=== PATIENT | female | born 1980 | race Caucasian/White ===

== ENCOUNTER → 2019-03-08 13:26 | Outpatient (CLI) | payer OTHER, SELFPAY ==
[2019-03-08 15:16] LABS: Cancer Antigen 125 203 U/mL (0-35)
[2019-03-13 15:41] LABS: Human HE4 Antigen 34 pmol/L
== END ==
PROVIDERS: PCP Nurse Practitioner; Visit Provider Obstetrics & Gynecology
DX: N83.9 Noninflammatory disorder of ovary, fallopian tube and broad ligament, unspecified (principal)
CPT/HCPCS: 36415; 86304; 86305

== ENCOUNTER → 2019-03-28 06:56 | Outpatient (CLI) | payer OTHER, SELFPAY ==
[2019-03-28 09:08] LABS: Cancer Antigen 125 102 U/mL (0-35)
== END ==
PROVIDERS: PCP Nurse Practitioner; Visit Provider Obstetrics & Gynecology
DX: N83.9 Noninflammatory disorder of ovary, fallopian tube and broad ligament, unspecified (principal)
CPT/HCPCS: 36415; 86304

== ENCOUNTER 2019-03-30 18:18 | Emergency (ER) | payer OTHER, SELFPAY ==
--- NOTE | 2019-03-30 18:24 | ED.ABDPAIN ---
HPI - Abdominal Pain General Chief Complaint: Abdominal Pain Stated Complaint: severe abd and pelvic pain Time Seen by Provider: 03/30/19 18:24 Source: patient Mode of arrival: ambulatory Limitations: no limitations History of Present Illness HPI narrative: 38-year-old female here for evaluation of left adnexal pain. Patient states she has a history of PCOS. She is not currently on control. Has been 2 times the past. States that this morning she woke up with slight left sided adnexal pain. As the day went on she started to have some vaginal bleeding. She had a sudden onset of a large amount of vaginal bleeding where she blood through a tampon. Since then has had worsening left adnexal pain. Related Data Previous Rx's Medication Instructions Recorded acyclovir 400 mg PO TID #15 tab 06/15/17 oxycodone-acetaminophen 5 mg-325 1 tab PO Q4-6H PRN #14 tab 03/08/19 mg tablet norethindrone 1 mg-ethinyl 1 tab PO DAILY #30 tab 03/28/19 estradiol 10 mcg (24)-iron 10 mcg(2) tablet hydrocodone-acetaminophen [[place]] 1 tab PO Q4-6H PRN #7 tab 03/30/19 Allergies Allergy/AdvReac Type Severity Reaction Status Date / Time No Known Drug Allergies Allergy Verified 03/30/19 18:37 Review of Systems Constitutional Denies fever(s) and Denies headache(s) ENT Ears, Nose, Mouth, and Throat: Denies headache(s) Cardiovascular Denies chest pain and Denies dyspnea Respiratory Denies dyspnea Gastrointestinal Gastrointestinal: Reports abdominal pain, Denies change in bowel habits, Denies nausea and Denies vomiting Genitourinary Denies dysuria Comments: Vaginal bleeding Musculoskeletal Denies myalgias and Denies arthralgias Integumentary/Breasts Denies rash Neurologic Denies headache(s) Hematologic/Lymphatic Denies easy bleeding and Denies easy bruising Allergic/Immunologic Denies urticaria [facility] Medical History PCOS (polycystic ovarian syndrome) (Acute) Surgical History (Updated 02/21/18 @ 05:41 by Conversion Provider) History of third molar tooth extraction Status post exploratory laparotomy Social History Smoking Status: Never smoker Social History Smoking Status: Never smoker Exam Initial Vital Signs Initial Vital Signs: Vital Signs Temperature 98.4 F 03/30/19 18:25 Pulse Rate 95 H 03/30/19 18:25 Respiratory Rate 18 03/30/19 18:25 Blood Pressure 111/73 03/30/19 18:25 Pulse Oximetry 99 03/30/19 18:25 Const General: cooperative, No comfortable (Uncomfortable), well developed, well groomed and No acute distress Orientation: alert, awake and oriented x3 HENMT Head: normal to inspection and normocephalic Resp Effort & Inspection: normal respiratory effort Auscultation: clear to auscultation bilaterally Cardio Rate: regular rate Rhythm: regular rhythm Pulses: radial pulses present GI Inspection: non-distended Palpation: soft, No firm, No rigid and tender (Left adnexal) Skin Lesions: no lesions Rashes: no rashes Neuro General: alert, awake and oriented x3 Extrem General: normal to inspection and capillary refill normal Psych Appearance: grossly normal and well kempt Course Orders Ordered: ED Orders 03/30/19 18:30 Ictotest Urine Stat Urinalysis and Microscopic Stat 03/30/19 18:32 US OB <= 14 weeks fetus Stat 03/30/19 18:50 ABO RH Type Stat Complete Blood Count AUTO DIFF Stat Comprehensive Metabolic Panel Stat HCG Quantitative Stat Lipase Stat Test Serum,Qual Stat Discontinued Medications Hydrocodone Bitart/Acetaminophen (Vicodin Prepack) 1 bottle MISC SEEINSTR ONE Stop: 03/30/19 21:46 Last Admin: 03/30/19 22:12 Dose: 1 bottle Hydromorphone HCl (Dilaudid) 0.5 mg IV NOW ONE Stop: 03/30/19 19:29 Last Admin: 03/30/19 19:34 Dose: 0.5 mg Hydromorphone HCl (Dilaudid) 0.5 mg IV NOW ONE Stop: 03/30/19 21:13 Last Admin: 03/30/19 21:18 Dose: 0.5 mg Morphine Sulfate (Morphine) 4 mg IV NOW ONE Stop: 03/30/19 18:34 Last Admin: 03/30/19 18:45 Dose: 4 mg Ondansetron HCl (Zofran) 4 mg IV NOW ONE Stop: 03/30/19 18:53 Last Admin: 03/30/19 18:53 Dose: 4 mg Vital Signs - 8 hr 03/30/19 18:25 03/30/19 19:58 03/30/19 20:56 Temperature 98.4 F 98.2 F Pulse Rate 95 H 70 70 Respiratory Rate 18 18 16 Blood Pressure 111/73 Blood Pressure [Right Arm] 94/61 108/82 Pulse Oximetry 99 98 97 03/30/19 22:15 03/30/19 22:19 Temperature Pulse Rate 64 71 Respiratory Rate 16 16 Blood Pressure 110/68 110/68 Blood Pressure [Right Arm] Pulse Oximetry 99 98 MDM - Abdominal Pain Lab Data Attestation: I reviewed the patient's lab results. Result diagrams: 03/30/19 18:50 03/30/19 18:50 Lab Results 03/30/19 03/30/19 03/30/19 Range/Units 18:30 18:50 18:50 WBC 10.4 (4.5-11.0) X10^3/uL RBC 4.21 (4.0-5.2) X10^6/uL Hgb 13.2 (12.0-16.0) g/dL Hct 38.1 (36-46) % MCV 90.3 (80-100) fL MCH 31.3 (26-34) PG MCHC 34.6 (30-36) % RDW 12.4 (11.6-14.8) % Plt Count 262 (150-400) X10^3/uL Neut % (Auto) 69.2 (50-75) % Lymph % (Auto) 20.4 L (25-40) % [place] % (Auto) 8.1 (3-14) % Eos % (Auto) 1.6 L (2-4) % Baso % (Auto) 0.7 (0-2) % Neut # (Auto) 7200 H (8876-9201) /uL Lymph # (Auto) 2100 (1547-3059) /uL [place] # (Auto) 800 (0-900) /uL Eos # (Auto) 200 (0-450) /uL Baso # (Auto) 100 (0-100) /uL Sodium 138 (137-145) mmol/L Potassium 3.3 L (3.4-5.1) mmol/L Chloride 103 (98-107) mmol/L Carbon Dioxide 28 (22-32) mmol/L BUN 14 (7-17) mg/dL Creatinine 0.70 (0.52-1.04) mg/dL Estimated GFR > 60.0 (>60) mL/min BUN/Creatinine Ratio 20.0 (6-22) Glucose 120 H (70-100) mg/dL Calcium 9.2 (8.4-10.2) mg/dL Total Bilirubin 0.7 (0.2-1.3) mg/dL AST 24 (14-36) IU/L ALT 13 (9-52) IU/L Alkaline Phosphatase 64 (38-126) U/L Total Protein 7.1 (6.3-8.2) g/dL Albumin 4.2 (3.5-5.0) g/dL Globulin 2.9 (1.7-4.1) g/dL Albumin/Globulin Ratio 1.4 (1.0-2.8) Lipase 107 (23-300) U/L HCG, Quant mIU/mL Serum , Qual (Negative) Urine Color Yellow Urine Appearance Clear Urine pH 5.0 (4.5-8.0) Ur Specific [place] >=1.030 H (1.000-1.035) Urine Protein 2+ H (Negative) Urine Glucose (UA) Negative (Negative) g/dL Urine Ketones Trace H (NEGATIVE) Urine Occult Blood 3+ H (Negative) Urine Nitrate Negative (Negative) Urine Bilirubin 1+ H (NEGATIVE) Urine Ictotest Positive H (Negative) Urine Urobilinogen 0.2 (0.2) E.U./dL Ur Leukocyte Esterase Negative (NEGATIVE) Urine RBC 30-100/hpf H (0-5/HPF) Urine WBC None seen (0-5/HPF) Ur Squamous Epith Cells 1-5 /hpf (0-5/HPF) Urine Bacteria None seen (None) Urine Mucus 1+ H (Negative) Ur Culture Indicated? Cult not indicated Blood Type 03/30/19 03/30/19 03/30/19 Range/Units 18:50 18:50 18:50 WBC (4.5-11.0) X10^3/uL RBC (4.0-5.2) X10^6/uL Hgb (12.0-16.0) g/dL Hct (36-46) % MCV (80-100) fL MCH (26-34) PG MCHC (30-36) % RDW (11.6-14.8) % Plt Count (150-400) X10^3/uL Neut % (Auto) (50-75) % Lymph % (Auto) (25-40) % [place] % (Auto) (3-14) % Eos % (Auto) (2-4) % Baso % (Auto) (0-2) % Neut # (Auto) (2705-1995) /uL Lymph # (Auto) (3301-4410) /uL [place] # (Auto) (0-900) /uL Eos # (Auto) (0-450) /uL Baso # (Auto) (0-100) /uL Sodium (137-145) mmol/L Potassium (3.4-5.1) mmol/L Chloride (98-107) mmol/L Carbon Dioxide (22-32) mmol/L BUN (7-17) mg/dL Creatinine (0.52-1.04) mg/dL Estimated GFR (>60) mL/min BUN/Creatinine Ratio (6-22) Glucose (70-100) mg/dL Calcium (8.4-10.2) mg/dL Total Bilirubin (0.2-1.3) mg/dL AST (14-36) IU/L ALT (9-52) IU/L Alkaline Phosphatase (38-126) U/L Total Protein (6.3-8.2) g/dL Albumin (3.5-5.0) g/dL Globulin (1.7-4.1) g/dL Albumin/Globulin Ratio (1.0-2.8) Lipase (23-300) U/L HCG, Quant 8248.6 mIU/mL Serum , Qual Positive H (Negative) Urine Color Urine Appearance Urine pH (4.5-8.0) Ur Specific [place] (1.000-1.035) Urine Protein (Negative) Urine Glucose (UA) (Negative) g/dL Urine Ketones (NEGATIVE) Urine Occult Blood (Negative) Urine Nitrate (Negative) Urine Bilirubin (NEGATIVE) Urine Ictotest (Negative) Urine Urobilinogen (0.2) E.U./dL Ur Leukocyte Esterase (NEGATIVE) Urine RBC (0-5/HPF) Urine WBC (0-5/HPF) Ur Squamous Epith Cells (0-5/HPF) Urine Bacteria (None) Urine Mucus (Negative) Ur Culture Indicated? Blood Type B Positive Imaging Data ultrasound: Radiologist's impression: [address] [address] Ultrasound Report Signed Patient: Mirela Stanley [facility]#: [id number] : 1980Acct:[id number] Age/Sex: 38 / FDate of Service: 03/30/19 Loc: ED Accession Number: [id number] Procedure: US OB <= 14 weeks fetus Ordering Provider: Jd Perez D.O. PROCEDURE: US OB <= 14 WEEKS FETUS INDICATIONS: LEFT ADNEXAL PAIN OUTSIDE/PRIOR DATING DATA: Last menstrual period (LMP): No available. LMP-based estimated date of delivery (LOY): Not available. First dating scan (date and location): 03/30/2019. Estimated date of delivery (LOY) from first dating scan: 11/23/2019. TECHNIQUE: Real-time scanning was performed of the fetus and maternal pelvic organs, with image documentation. Endovaginal scanning was also performed to better visualize the fetus and maternal ovaries. COMPARISON: None. FINDINGS: Embryo: There is an intrauterine gestational sac which appears irregular. There is a pole. Based on the crown-rump length, the estimated gestational age is 6 weeks zero day. No cardiac activity is visualized. Measurement variability in dating: +/- 4 weeks by LMP, +/- 7 days by mean sac diameter (use before 6 weeks gestation if crown-rump length not able to be measured), +/- 5 days by crown-rump length (up to 8 weeks 6 days gestation), +/- 7 days by crown-rump length (up to 13 weeks 6 days gestation). Maternal organs: Ovaries are grossly normal. There is a corpus luteal cyst in the right ovary. Limited images through the kidneys demonstrate no hydronephrosis. IMPRESSION: An irregular intrauterine gestational sac is identified with an estimated gestational age is 6 weeks 0 day. A pole is present, but no heart tone. The ultrasound findings are suspicious for first trimester failure (early demise). Please correlate with quantitative beta hCG. Dictated by: Lara Mills M.D. on 03/30/2019 at 21:18 Approved by: Lara Mills M.D. on 03/30/2019 at 21:23 MDM Narrative Medical decision making narrative: The patient did have a positive test. I did inform her of this. She was unaware that she was . She is Rh positive so no indication for RhoGAM. The ultrasound is consistent with a miscarriage. I discussed this with the patient. She is not anemic. No indication for admission to the hospital. We did discuss the expected course of symptoms over the next day or so. 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 She was given return precautions. She expressed understanding and agreement with plan. Discharge Plan Departure Patient Disposition: Home Clinical Impression: Miscarriage Discharge Date/Time: 03/30/19 22:20 Interventions: ED Discharge Assessment Last Done: 03/30/19 22:19 Instructions: Dealing With Miscarriage, DI for Miscarriage Activity Restrictions/Additional Instructions: Expect some discomfort and bleeding over the next couple days. On Tuesday contact your OB provider for a follow-up. You can also take ibuprofen along with the prescription you were given today for any discomfort. Return to the emergency department for any new or worsening symptoms Prescriptions: New hydrocodone-acetaminophen [[place]] 5-325 mg tablet 1 tab PO Q4-6H PRN (Reason: pain) Qty: 7 RF: 0 No Action acyclovir 400 MG tablet 400 mg PO TID Qty: 15 RF: 0 Lo Loestrin Fe 1 mg-10 mcg (24)/10 mcg (2) tablet 1 tab PO DAILY Qty: 30 RF: 3 oxycodone-acetaminophen [Percocet] 5-325 mg tablet 1 tab PO Q4-6H PRN (Reason: pain) Qty: 14 RF: 0 Referrals: Rashmi Morrell ARNP [Primary Care Provider] -
[2019-03-30 18:25] VITALS: BP 111/73; PULSE 95; RESP 18; TEMP 36.9; O2SAT 99; BMI 28.0
--- NOTE | 2019-03-30 18:32 | DI.US.S_ITS ---
PROCEDURE: US OB <= 14 WEEKS FETUS INDICATIONS: LEFT ADNEXAL PAIN OUTSIDE/PRIOR DATING DATA: Last menstrual period (LMP): No available. LMP-based estimated date of delivery (LOY): Not available. First dating scan (date and location): 03/30/2019. Estimated date of delivery (LOY) from first dating scan: 11/23/2019. TECHNIQUE: Real-time scanning was performed of the fetus and maternal pelvic organs, with image documentation. Endovaginal scanning was also performed to better visualize the fetus and maternal ovaries. COMPARISON: None. FINDINGS: Embryo: There is an intrauterine gestational sac which appears irregular. There is a pole. Based on the crown-rump length, the estimated gestational age is 6 weeks zero day. No cardiac activity is visualized. Measurement variability in dating: +/- 4 weeks by LMP, +/- 7 days by mean sac diameter (use before 6 weeks gestation if crown-rump length not able to be measured), +/- 5 days by crown-rump length (up to 8 weeks 6 days gestation), +/- 7 days by crown-rump length (up to 13 weeks 6 days gestation). Maternal organs: Ovaries are grossly normal. There is a corpus luteal cyst in the right ovary. Limited images through the kidneys demonstrate no hydronephrosis. IMPRESSION: An irregular intrauterine gestational sac is identified with an estimated gestational age is 6 weeks 0 day. A pole is present, but no heart tone. The ultrasound findings are suspicious for first trimester failure (early demise). Please correlate with quantitative beta hCG. Dictated by: Lara Mills M.D. on 03/30/2019 at 21:18 Approved by: Lara Mills M.D. on 03/30/2019 at 21:23
[2019-03-30 18:38] LABS: Bacteria Urine None Seen; WBC Urine None Seen (0-5/HPF)
[2019-03-30 18:39] LABS: Appearance Urine UA CLEAR; Bilirubin Urine UA 1+ (NEGATIVE); Color Urine UA YELLOW; Glucose Urine UA NEGATIVE (Negative); Ketones Urine UA TRACE (NEGATIVE); Leukocyte Esterase Urine UA NEGATIVE (NEGATIVE); Nitrite Urine UA NEGATIVE (Negative); Occult Blood Urine UA 3+ (Negative); Protein Urine UA 2+ (Negative); Specific Gravity Urine UA >=1.030 (1.000-1.035); Urobilinogen Urine UA 0.2 E.U./dL (0.2)
[2019-03-30] MEDS: MORPHINE 4 MG/ML INJ IV (18:45)
[2019-03-30] MEDS: ONDANSETRON 4 MG/2 ML INJ IV (18:53)
[2019-03-30 18:56] LABS: Add Manual Diff / Slide Review NO; Basophils Absolute Auto 100 /uL (0-100); Basophils Percent Auto 0.7 % (0-2); Eosinophils Absolute Auto 200 /uL (0-450); Eosinophils Percent Auto 1.6 % (2-4); Hematocrit 38.1 % (36-46); Hemoglobin 13.2 g/dL (12.0-16.0); Lymphocytes Absolute Auto 2100 /uL (1100-4500); Lymphocytes Percent Auto 20.4 % (25-40); Mean Corpuscular HGB Conc 34.6 % (30-36); Mean Corpuscular Hemoglobin 31.3 PG (26-34); Mean Corpuscular Volume 90.3 fL (80-100); Monocytes Absolute Auto 800 /uL (0-900); Monocytes Percent Auto 8.1 % (3-14); Neutrophils Absolute Auto 7200 /uL (1500-7000); Neutrophils Percent Auto 69.2 % (50-75); Platelet Count 262 X10^3/uL (150-400); Red Blood Cell Count 4.21 X10^6/uL (4.0-5.2); Red Cell Distribution Width 12.4 % (11.6-14.8); White Blood Cell Count 10.4 X10^3/uL (4.5-11.0)
[2019-03-30 18:57] LABS: Culture Indicated Urine Cult Not Indicated; Mucus Urine 1+ (Negative); RBC Urine 30-100/HPF (0-5/HPF); Squamous Epithelial Cell Urine 1-5 /HPF (0-5/HPF)
[2019-03-30 19:00] LABS: Ictotest Urine Positive (Negative)
[2019-03-30 19:08] LABS: Alanine Aminotransferase 13 IU/L (9-52); Albumin 4.2 g/dL (3.5-5.0); Albumin Globulin Ratio 1.4 (1.0-2.8); Alkaline Phosphatase 64 U/L (38-126); Aspartate Aminotransferase 24 IU/L (14-36); Bilirubin Total 0.7 mg/dL (0.2-1.3); Blood Urea Nitrogen 14 mg/dL (7-17); Calcium 9.2 mg/dL (8.4-10.2); Carbon Dioxide 28 mmol/L (22-32); Chloride 103 mmol/L (98-107); Estimated Glomerular Filt Rate > 60.0 mL/min (>60); Globulin 2.9 g/dL (1.7-4.1); Glucose 120 mg/dL (70-100); HEMOLYSIS 19 (0-50); Lipase 107 U/L (23-300); Potassium 3.3 mmol/L (3.4-5.1); Sodium 138 mmol/L (137-145); Total Protein 7.1 g/dL (6.3-8.2)
[2019-03-30 19:30] LABS: Pregnancy Test Serum,Qual Positive (Negative)
[2019-03-30] MEDS: HYDROMORPHONE 1 MG INJ 0.5 MG IV ×2 (19:34→21:18)
[2019-03-30 19:58] VITALS: BP 94/61; PULSE 70; RESP 18; TEMP 36.8; O2SAT 98
[2019-03-30 20:03] LABS: HCG Quantitative /Beta subunit 8248.6 mIU/mL
[2019-03-30 20:56] VITALS: BP 108/82; PULSE 70; RESP 16; O2SAT 97
[2019-03-30] MEDS: HYDROCODONE/ACET 5/325 PREPACK 1 BOTTLE MISC (22:12)
[2019-03-30 22:15] VITALS: BP 110/68; PULSE 64; RESP 16; O2SAT 99
[2019-03-30 22:19] VITALS: BP 110/68; PULSE 71; RESP 16; O2SAT 98
== END 2019-03-30 22:20 | disposition home or self-care (01) ==
PROVIDERS: Emergency Provider Emergency Medicine; PCP Nurse Practitioner
DX: O03.9 Complete or unspecified spontaneous abortion without complication (principal)
CPT/HCPCS: 76801; 76817; 80053; 81001; 83690; 84702; 84703; 85025; 86900; 86901; 96366; 96374; 96375; 96376; 99283; 99284; J1170; J2270; J2405

== ENCOUNTER → 2019-04-09 16:51 | Outpatient (CLI) | payer OTHER, SELFPAY ==
[2019-04-09 18:17] LABS: HCG Quantitative /Beta subunit 120.46 mIU/mL
[2019-04-09 18:31] LABS: Cancer Antigen 125 33 U/mL (0-35)
== END ==
PROVIDERS: PCP Nurse Practitioner; Visit Provider Obstetrics & Gynecology
DX: R97.1 Elevated cancer antigen 125 [CA 125] (principal); O03.9 Complete or unspecified spontaneous abortion without complication
CPT/HCPCS: 36415; 84702; 86304

== ENCOUNTER → 2020-12-11 12:19 | Outpatient (CLI) | payer OTHER, SELFPAY | PROVIDERS: PCP Family Medicine; Visit Provider Obstetrics & Gynecology | DX: R31.9 Hematuria, unspecified (principal); R39.9 Unspecified symptoms and signs involving the genitourinary system | CPT/HCPCS: 87086 ==

== ENCOUNTER → 2020-12-11 12:35 | Outpatient (CLI) | payer OTHER, SELFPAY ==
[2020-12-11 13:00] LABS: Add Manual Diff / Slide Review NO; Basophils Absolute Auto 100 /uL (0-100); Basophils Percent Auto 0.8 % (0-2); Eosinophils Absolute Auto 200 /uL (0-450); Eosinophils Percent Auto 2.5 % (2-4); Hematocrit 41.6 % (36-46); Lymphocytes Absolute Auto 1500 /uL (1100-4500); Lymphocytes Percent Auto 14.8 % (25-40); Mean Corpuscular HGB Conc 33.7 % (30-36); Mean Corpuscular Hemoglobin 31.2 PG (26-34); Mean Corpuscular Volume 92.4 fL (80-100); Monocytes Absolute Auto 800 /uL (0-900); Monocytes Percent Auto 7.4 % (3-14); Neutrophils Absolute Auto 7600 /uL (1500-7000); Neutrophils Percent Auto 74.5 % (50-75); Platelet Count 278 X10^3/uL (150-400); Red Blood Cell Count 4.51 X10^6/uL (4.0-5.2); White Blood Cell Count 10.2 X10^3/uL (4.5-11.0)
[2020-12-11 13:22] LABS: Alanine Aminotransferase 15 IU/L (<35); Albumin 4.2 g/dL (3.5-5.0); Albumin Globulin Ratio 1.3 (1.0-2.8); Alkaline Phosphatase 52 U/L (38-126); Aspartate Aminotransferase 26 IU/L (14-36); Bilirubin Total 0.5 mg/dL (0.2-1.3); Blood Urea Nitrogen 17 mg/dL (7-17); Calcium 9.3 mg/dL (8.4-10.2); Carbon Dioxide 31 mmol/L (22-32); Chloride 104 mmol/L (98-107); Estimated Glomerular Filt Rate > 60.0 mL/min (>60); Globulin 3.2 g/dL (1.7-4.1); Glucose 105 mg/dL (70-100); HEMOLYSIS < 15 (0-50); Potassium 4.4 mmol/L (3.4-5.1); Sodium 138 mmol/L (137-145); Total Protein 7.4 g/dL (6.3-8.2)
== END ==
PROVIDERS: PCP Family Medicine; Referring Provider Family Medicine; Visit Provider Family Medicine
DX: E28.2 Polycystic ovarian syndrome (principal); R39.9 Unspecified symptoms and signs involving the genitourinary system; R31.9 Hematuria, unspecified
CPT/HCPCS: 36415; 80053; 85025; 87077; 87086; 87186

== ENCOUNTER → 2021-01-05 16:23 | Outpatient (CLI) | payer OTHER, SELFPAY ==
[2021-01-05] MEDS: COVID-19 VACC, Ad26(JANSSEN)/PF 0.5 ML IM (16:32)
== END ==
PROVIDERS: PCP Family Medicine; Visit Provider Internal Medicine
DX: Z23 Encounter for immunization (principal)
CPT/HCPCS: 0031A; 91303

== ENCOUNTER → 2022-06-11 10:50 | Outpatient (CLI) | payer OTHER, SELFPAY ==
[2022-06-11 13:20] LABS: Free T3, Triiodothyronine Free 3.65 pg/mL (2.77-5.27); T4 Total Thyroxine 5.04 ug/dL (5.5-11.0)
[2022-06-11 13:33] LABS: Thyroid Stimulating Hormone 1.52 uIU/mL (0.47-4.68)
[2022-06-17 11:29] LABS: Triiodothyronine T3 Reverse 11.4 ng/dL (9.2-24.1)
== END ==
PROVIDERS: PCP Family Medicine; Referring Provider Nurse Practitioner Family; Visit Provider Nurse Practitioner Family
DX: Z51.81 Encounter for therapeutic drug level monitoring (principal); E03.9 Hypothyroidism, unspecified; Z86.39 Personal history of other endocrine, nutritional and metabolic disease
CPT/HCPCS: 36415; 84436; 84443; 84481; 84482

== ENCOUNTER → 2022-11-12 08:33 | Outpatient (CLI) | payer OTHER, SELFPAY ==
[2022-11-12 10:28] LABS: Progesterone, Total 0.53 ng/mL
[2022-11-12 10:31] LABS: Free T3, Triiodothyronine Free 5.21 pg/mL (2.77-5.27); T4 Total Thyroxine 6.41 ug/dL (5.5-11.0)
[2022-11-12 10:45] LABS: Thyroid Stimulating Hormone 2.48 uIU/mL (0.47-4.68)
[2022-11-22 14:40] LABS: Triiodothyronine T3 Reverse 13.6
== END ==
PROVIDERS: PCP Family Medicine; Referring Provider Nurse Practitioner Family; Visit Provider Nurse Practitioner Family
DX: Z34.90 Encounter for supervision of normal pregnancy, unspecified, unspecified trimester (principal); E03.9 Hypothyroidism, unspecified; Z86.39 Personal history of other endocrine, nutritional and metabolic disease; Z51.81 Encounter for therapeutic drug level monitoring
CPT/HCPCS: 36415; 84144; 84436; 84443; 84481; 84482

== ENCOUNTER 2024-05-07 11:05 | Emergency (ER) | payer OTHER, SELFPAY ==
[2024-05-07] VITALS (10 sets, daily range): BP systolic 91–119; BP diastolic 65–83; PULSE 70–82; RESP 16–20; TEMP 36.9; O2SAT 93–100; BMI 28.4
--- NOTE | 2024-05-07 11:46 | PC.NURSE ---
Painful upper abdomen breathing/lower chest pain when breathing. Right shoulder pain when breathing. Fever at home. stomach bug a couple weeks ago. no recent n/v. no diarrhea
--- NOTE | 2024-05-07 11:49 | EKG_ITS ---
[address] [address] [address] [address] Test Date: 2024-05-07 Pat Name: Mirela Stanley Department: [facility] Room: Gender: Female Virtual Recruiter: ANGEL : 1980 Requested By: Order Number: [id number] Reading MD: Edson Montoya MD Measurements Intervals [place] Rate: 76 P: 27 MA: 150 QRS: -16 QRSD: 86 T: 11 QT: 408 QTc: 459 Interpretive Statements Normal sinus rhythm Electronically Signed On 05-07-2024 15:47:46 PDT by Edson Montoya MD
--- NOTE | 2024-05-07 11:52 | ED.GENADULT ---
HPI - General Adult General Chief complaint: Fever Stated complaint: SOB CHEST PAINS FEVER T-3 Time Seen by Provider: 05/07/24 11:40 Source: patient and family Mode of arrival: Ambulatory History of Present Illness HPI narrative: Patient is a 43-year-old female who is here for evaluation approximately 3 days of shortness of breath chest pains and fevers and generally not feeling very well. Has also had a cough. No abdominal pain or nausea or vomiting. No urinary symptoms. No skin changes. Contacted her primary doctor yesterday. Ordered a chest x-ray for today. She has not had that chest x-ray. Was also prescribed azithromycin. She was taken 1 dose of that medication. She presents today for continued symptoms. Related Data Home Medications Medication Instructions Recorded Confirmed Yaya Harper 0.25 gram .Route BID 04/09/19 12/11/20 Previous Rx's Medication Instructions Recorded acyclovir 400 mg tablet 400 mg PO TID #15 tabs 06/15/17 norethindrone 1 mg-ethinyl 1 tab PO DAILY #30 tabs 03/28/19 estradiol 10 mcg (24)-iron 10 mcg(2) tablet (Lo Loestrin Fe) ciprofloxacin HCl 250 mg tablet 250 mg PO BID #14 tabs 12/11/20 hydrocodone 5 mg-acetaminophen 325 1 tab PO Q4-6H PRN pain #20 tabs 12/11/20 mg tablet prednisone 20 mg tablet 20 mg PO DAILY #5 tabs 12/11/20 Allergies Allergy/AdvReac Type Severity Reaction Status Date / Time No Known Drug Allergies Allergy Verified 12/17/20 16:40 Review of Systems Review of Systems Narrative: See HPI Patient History Medical History Acne Chicken pox Ovarian cyst (~2018) Irregular menstrual cycle Infertility Herpes (~1999) Urinary tract infection Acute pelvic pain, female PCOS (polycystic ovarian syndrome) Surgical History Anesthesia History of ankle surgery (~2010) History of knee surgery (~2012) History of third molar tooth extraction Status post exploratory laparotomy (~2007) Family History Father Mental health problem Mother History of heart disease Social History (Reviewed 07/15/24 @ 11:53 by SHERIN Hudson Smoking Status: Never smoker Smoking Status: Never smoker alcohol intake frequency: a few times a week Substance Use Type: does not use Exam Initial Vital Signs Initial Vital Signs: Vital Signs Temperature 98.4 F 05/07/24 11:21 Pulse Rate 71 05/07/24 11:21 Respiratory Rate 20 05/07/24 11:21 Blood Pressure 119/83 05/07/24 11:21 Pulse Oximetry 96 05/07/24 11:21 Oxygen Delivery Method Room Air 05/07/24 11:21 HENMT Head: normal to inspection and normocephalic Resp Effort & Inspection: normal respiratory effort Auscultation: clear to auscultation bilaterally Cardio Rate: regular rate Rhythm: regular rhythm GI Inspection: normal to inspection and non-distended Skin General: no rashes or lesions noted Neuro General: patient alert, patient awake and moves all extremities Course Orders Ordered: ED Orders 05/07/24 11:40 EKG-12 Lead Stat 05/07/24 11:51 XR chest 1V Stat 05/07/24 12:06 Basic Metabolic Panel Stat Complete Blood Count AUTO DIFF Stat Respiratory Panel (Film Array) Stat 05/07/24 14:30 Ictotest Urine Stat Urine Culture Stat Urine Microscopic Stat Discontinued Medications Sodium Chloride (Normal Saline 0.9%) 1,000 mls @ 1,000 mls/hr IV BOLUS ONE Stop: 05/07/24 12:49 Last Infusion: 05/07/24 13:04 Dose: Infused Documented By: Admin: 05/07/24 12:24 Dose: 1,000 mls/hr Documented By: POORNIMA Sodium Chloride (Normal Saline 0.9%) 1,000 mls @ 1,000 mls/hr IV BOLUS ONE Stop: 05/07/24 14:24 Last Infusion: 05/07/24 14:28 Dose: Infused Documented By: Admin: 05/07/24 13:34 Dose: 1,000 mls/hr Documented By: KASSIDY Ketorolac Tromethamine (Ketorolac 30 Mg/Ml Vial) 30 mg IV NOW ONE Stop: 05/07/24 11:51 Vital Signs Vital signs: Vital Signs - 8 hr 05/07/24 11:21 05/07/24 11:51 05/07/24 11:51 Temperature 98.4 F Pulse Rate 71 82 Respiratory Rate 20 Blood Pressure 119/83 101/71 Pulse Oximetry 96 96 Oxygen Delivery Method Room Air 05/07/24 12:00 05/07/24 12:00 05/07/24 12:30 Temperature Pulse Rate 79 Respiratory Rate Blood Pressure 103/71 96/69 Pulse Oximetry 96 Oxygen Delivery Method 05/07/24 12:30 05/07/24 13:00 05/07/24 13:00 Temperature Pulse Rate 70 73 Respiratory Rate Blood Pressure 98/65 Pulse Oximetry 98 98 Oxygen Delivery Method 05/07/24 13:42 05/07/24 13:43 05/07/24 13:43 Temperature Pulse Rate 75 75 Respiratory Rate Blood Pressure 96/69 Pulse Oximetry 93 98 Oxygen Delivery Method 05/07/24 14:00 05/07/24 14:00 Temperature Pulse Rate 73 Respiratory Rate Blood Pressure 91/65 Pulse Oximetry 96 Oxygen Delivery Method Medical Decision Making Lab Data Lab results reviewed: Yes I reviewed the patient's lab results. 05/07/24 12:06 05/07/24 12:06 Labs: Lab Results 05/07/24 Range/Units 12:06 WBC 13.0 H (4.5-11.0) X10^3/uL RBC 4.15 (4.0-5.2) X10^6/uL Hgb 12.7 (12.0-16.0) g/dL Hct 37.1 (36-46) % MCV 89.4 (80-100) fL MCH 30.5 (26-34) PG MCHC 34.1 (30-36) % RDW 12.3 (11.6-14.8) % Plt Count 267 (150-400) X10^3/uL Neut % (Auto) 78.5 H (50-75) % Lymph % (Auto) 10.6 L (25-40) % [place] % (Auto) 9.5 (3-14) % Eos % (Auto) 0.9 L (2-4) % Baso % (Auto) 0.5 (0-2) % Neut # (Auto) 22748 H (6473-8603) /uL Lymph # (Auto) 1400 (4716-4045) /uL [place] # (Auto) 1200 H (0-900) /uL Eos # (Auto) 100 (0-450) /uL Baso # (Auto) 100 (0-100) /uL Sodium 136 L (137-145) mmol/L Potassium 3.8 (3.4-5.1) mmol/L Chloride 106 (98-107) mmol/L Carbon Dioxide 23 (22-32) mmol/L BUN 22 H (7-17) mg/dL Creatinine 0.85 (0.52-1.04) mg/dL Estimated GFR > 60 (>60) mL/min BUN/Creatinine Ratio 25.9 H (6-22) Glucose 95 (70-100) mg/dL Calcium 8.9 (8.4-10.2) mg/dL Chlamy pneumoniae PCR Not detected (Not Detect) Adenovirus (PCR) Not detected (Not Detect) B.parapertussis DNA PCR Not detected (Not Detecte) Coronavirus OC43 (PCR) Not detected (Not Detect) Coronavirus HKU1 (PCR) Not detected (Not Detect) Coronavirus 229E (PCR) Not detected (Not Detect) SARS-CoV-2 (PCR) Not detected (Not Detecte) Coronavirus NL63 (PCR) Not detected (Not Detect) Human Metapneumovir PCR Not detected (Not Detect) Influenza Type A (PCR) Not detected (Not Detect) Influenza Type B (PCR) Not detected (Not Detect) M. pneumoniae (PCR) Not detected (Not Detect) Parainfluenza 1 (PCR) Not detected (Not Detect) Parainfluenza 2 (PCR) Not detected (Not Detect) Parainfluenza 3 (PCR) Not detected (Not Detect) Parainfluenza 4 (PCR) Not detected (Not Detect) RSV (PCR) Not detected (Not Detect) Entero/Rhino (PCR) Not detected (Not Detect) Urine Dip Bedside Urine Glucose Negative Bedside Urine Bilirubin + 1 Bedside Urine Ketone +++ 80 Urine Specific [place] 1.020 Bedside Urine Occult Blood ++ Bedside Urine pH 6.0 Bedside Urine Protein + 30 Bedside Urine Urobilinogen +/- 1mg Bedside Urine Nitrite - Negative Bedside Urine Leukocytes +/- 15 Esterase Point of care testing: Urine Dip Bedside Urine Glucose Negative Bedside Urine Bilirubin + 1 Bedside Urine Ketone +++ 80 Urine Specific [place] 1.020 Bedside Urine Occult Blood ++ Bedside Urine pH 6.0 Bedside Urine Protein + 30 Bedside Urine Urobilinogen +/- 1mg Bedside Urine Nitrite - Negative Bedside Urine Leukocytes +/- 15 Esterase Imaging Data Chest x-ray: Radiologist's Impression: PROCEDURE: XR CHEST 1V INDICATIONS: eval for PNA TECHNIQUE: One view of the chest was acquired. COMPARISON: [facility], , CHEST 1 VIEW, 02/29/2016, 11:01. FINDINGS: Surgical changes and devices: None. Lungs and pleura: Multifocal consolidation of the right mid lung zone and left upper lung zone. Mediastinum: Mediastinal contours appear normal. Heart size is normal. Bones and chest wall: No suspicious bony lesions. Overlying soft tissues appear unremarkable. IMPRESSION: Multifocal consolidation concerning for pneumonia. ECG Data Attestation: I personally reviewed and interpreted this ECG as follows: Interpretation: Sinus rhythm Ventricular rate is 76 Normal axis Normal QRS Normal QTC No ST T wave changes MDM Narrative Medical decision making narrative: Chest x-ray is consistent with a pneumonia. No other source of infection was found on the exam. Has a leukocytosis. Has a prescription for antibiotics appropriate for pneumonia already prescribed by her primary doctor. She was already taken 1 day of this medication. No indication for admission to the hospital. No indication to change any of the current antibiotics. Will discharge patient home with return precautions. Discharge Plan Departure Patient Disposition: Home Clinical Impression: Pneumonia Instructions: DI for Pneumonia -- Adult Activity Restrictions/Additional Instructions: Recommend that you continue to take all of your medications as directed to include the antibiotics that you were prescribed yesterday. You can continue to take Tylenol/ibuprofen for any fevers or body aches. Be sure that you were increasing your fluid intake. Return to the emergency department for new or worsening symptoms. Prescriptions: No Action acyclovir 400 MG tablet 400 mg PO TID Qty: 15 0RF Lo Loestrin Fe 1 mg-10 mcg (24)/10 mcg (2) tablet 1 tab PO DAILY Qty: 30 3RF hydrocodone-acetaminophen 5-325 mg tablet 1 tab PO Q4-6H PRN (Reason: pain) Qty: 20 0RF prednisone 20 mg tablet 20 mg PO DAILY Qty: 5 0RF ciprofloxacin HCl 250 mg tablet 250 mg PO BID Qty: 14 0RF [place] Baiyao 0.25 gram .ROUTE BID Patient Comments: 0.25 g BID; Rx Instructions: 0.25 g BID; Referrals: Huy Raya DO [Primary Care Provider] - Stand Alone Forms: Patient Portal/API
[2024-05-07 12:15] LABS: Add Manual Diff / Slide Review NO; Basophils Absolute Auto 100 /uL (0-100); Basophils Percent Auto 0.5 % (0-2); Eosinophils Absolute Auto 100 /uL (0-450); Eosinophils Percent Auto 0.9 % (2-4); Hematocrit 37.1 % (36-46); Hemoglobin 12.7 g/dL (12.0-16.0); Lymphocytes Absolute Auto 1400 /uL (1100-4500); Lymphocytes Percent Auto 10.6 % (25-40); Mean Corpuscular HGB Conc 34.1 % (30-36); Mean Corpuscular Hemoglobin 30.5 PG (26-34); Mean Corpuscular Volume 89.4 fL (80-100); Monocytes Absolute Auto 1200 /uL (0-900); Monocytes Percent Auto 9.5 % (3-14); Neutrophils Absolute Auto 10200 /uL (1500-7000); Neutrophils Percent Auto 78.5 % (50-75); Platelet Count 267 X10^3/uL (150-400); Red Blood Cell Count 4.15 X10^6/uL (4.0-5.2); Red Cell Distribution Width 12.3 % (11.6-14.8)
[2024-05-07] MEDS: SODIUM CHLORIDE 0.9% 1,000 ML 1000 ML IV ×2 (12:24→13:34)
[2024-05-07 12:30] LABS: BUN Creatinine Ratio 25.9 (6-22); Blood Urea Nitrogen 22 mg/dL (7-17); Calcium 8.9 mg/dL (8.4-10.2); Carbon Dioxide 23 mmol/L (22-32); Chloride 106 mmol/L (98-107); Estimated Glomerular Filt Rate > 60 mL/min (>60); Glucose 95 mg/dL (70-100); HEMOLYSIS < 15 (0-50); Potassium 3.8 mmol/L (3.4-5.1); Sodium 136 mmol/L (137-145)
[2024-05-07 13:08] LABS: Adenovirus Not Detected (Not Detect); B. parapertussis Not Detected (Not Detecte); Bordetella pertussis Not Detected (Not Detect); Chlamydophila pneumoniae Not Detected (Not Detect); Coronavirus 229E Not Detected (Not Detect); Coronavirus HKU1 Not Detected (Not Detect); Coronavirus NL 63 Not Detected (Not Detect); Coronavirus OC43 Not Detected (Not Detect); Human Metapneumovirus Not Detected (Not Detect); Human Rhinovirus/Enterovirus Not Detected (Not Detect); Influenza A Not Detected (Not Detect); Influenza B Not Detected (Not Detect); Mycoplasma pneumoniae Not Detected (Not Detect); Parainfluenza Virus 1 Not Detected (Not Detect); Parainfluenza Virus 2 Not Detected (Not Detect); Parainfluenza Virus 3 Not Detected (Not Detect); Parainfluenza Virus 4 Not Detected (Not Detect); Respiratory Syncytial Virus Not Detected (Not Detect); SARS- CoV-2 Not Detected (Not Detecte)
[2024-05-07] MEDS: KETOROLAC 30 MG/ML VIAL IV (14:39)
[2024-05-07 15:42] LABS: Ictotest Urine Negative (Negative)
[2024-05-07 16:00] LABS: Bacteria Urine Few (2-10); RBC Urine 5-10/HPF (0-5/HPF); Squamous Epithelial Cell Urine 1-5 /HPF (0-5/HPF); Urine Volume 10mL (spun); WBC Urine 5-10/HPF (0-5/HPF)
[2024-05-07 16:01] LABS: Mucus Urine 2+ (Negative)
== END 2024-05-07 14:43 | disposition home or self-care (01) ==
PROVIDERS: Emergency Provider Emergency Medicine; PCP Family Medicine
DX: J18.9 Pneumonia, unspecified organism (principal); R06.02 Shortness of breath; Z79.899 Other long term (current) drug therapy; Z11.52 Encounter for screening for COVID-19
CPT/HCPCS: 36415; 71045; 80048; 81003; 81015; 85025; 87086; 87633; 93005; 96361; 96374; 99284; J1885

== ENCOUNTER → 2024-11-21 10:20 | Outpatient (CLI) | payer OTHER, SELFPAY ==
--- NOTE | 2024-11-21 10:22 | DI.US.S_ITS ---
LIMITED ULTRASOUND OF RIGHT BREAST: 11/21/2024 CLINICAL: Patient returns today to evaluate a focal asymmetry in the right breast. Comparison is made to exam dated: 11/21/2024 mammogram - [facility]. Real-time ultrasound of the right breast 12-1 o'clock region was performed. Reich scale images of the real-time examination were reviewed. No significant abnormalities were seen sonographically in the right breast. Benign fibroglandular tissue seen. No mass or cyst. IMPRESSION: NEGATIVE There is no sonographic evidence of malignancy. Benign fibroglandular tissue. No mass or cyst. A 1 year screening mammogram is recommended. Exam findings were conveyed to the patient. This exam was interpreted at Station ID: [id number]. Electronically Signed By: Ari Jarrell M.D. slc/:11/21/2024 11:09:09 letter sent: Normal Exam ACR BI-RADS Category 1: Negative
--- NOTE | 2024-11-21 10:22 | DI.MG.S_ITS ---
BILATERAL DIGITAL DIAGNOSTIC MAMMOGRAM 3D/2D: 11/21/2024 CLINICAL: Abnormal Thermogram. Baseline mammogram. No prior mammogram exams were available for comparison. Thermographic exam 10/05/2024. There are scattered areas of fibroglandular density (category b / 25%-50% glandular tissue). There is a global asymmetry in the right breast at 1 o'clock posterior depth. No other significant masses, calcifications, or other findings are seen in either breast. IMPRESSION: INCOMPLETE: NEED ADDITIONAL IMAGING EVALUATION The global asymmetry in the right breast most likely is fibroglandular tissue and is indeterminate. A targeted ultrasound is recommended and will immediately follow. Based on the Tyrer Cuzick model (a risk assessment model) the patient's lifetime risk is 6.6% and her 10 year risk is 1.1%. According to the ACR, ACS, and NCCN guidelines, an annual breast MRI exam along with mammogram is recommended if the patient's lifetime risk is 20% or greater. This exam was interpreted at Station ID: [id number]. NOTE: For mammograms, a report in lay terms will be sent to the patient. Approximately 15% of breast malignancies will not be visualized mammographically. In the management of a palpable breast mass, a negative mammogram must not discourage biopsy of a clinically suspicious lesion. Electronically Signed By: Ari Jarrell M.D. [facility] [email or web address]/:11/21/2024 11:07:54 letter sent: Additional Imaging Needed ACR BI-RADS Category 0: Incomplete: Need Additional Imaging Evaluation
== END ==
PROVIDERS: PCP Family Medicine; Referring Provider Specialist; Visit Provider Specialist
DX: R92.8 Other abnormal and inconclusive findings on diagnostic imaging of breast (principal)
CPT/HCPCS: 76642; 77066; G0279